=== PATIENT | male | born 1960 ===

== ENCOUNTER 2017-08-16 10:09 | Day surgery (SDC) | payer OTHER ==
[2017-08-16] MEDS ORDERED: Lactated Ringer's 1,000 ML IV ONE ×2 (10:59)
[2017-08-16] MEDS ORDERED: Propofol 10 mg/ml Inj (20 ML) ONE (11:28)
[2017-08-16] MEDS ORDERED: Lidocaine 2% MPF (5 ml) Inj ONE (11:28)
[2017-08-16 11:46] VITALS: BP 96/51; O2SAT 97
[2017-08-16 11:58] VITALS: PULSE 55; RESP 15; TEMP 97.2
== END 2017-08-16 12:14 | disposition home or self-care (01) ==
LOC: H.ENDO 10:09
PROVIDERS: ATTEND Internal Medicine Gastroenterology
DX: Z12.11 Encounter for screening for malignant neoplasm of colon (principal); E78.5 Hyperlipidemia, unspecified; N40.0 Benign prostatic hyperplasia without lower urinary tract symptoms; K64.8 Other hemorrhoids
CPT/HCPCS: 45378; J2704; J7120